=== PATIENT | female | born 1950 | race Caucasian/White ===

== ENCOUNTER 2018-08-18 18:14 | Emergency (ER) | payer OTHER ==
[~2018-08-18] VITALS: Ht 154.9 cm; Wt 52.2 kg
[2018-08-18] MEDS ORDERED: NORCO 5-325 TA1 EACH PO (20:29)
[2018-08-18 20:39] VITALS: BP 146/81
== END 2018-08-18 20:39 | disposition home or self-care (01) ==
LOC: ER 18:14
DX: S32.511A Fracture of superior rim of right pubis, initial encounter for closed fracture (principal); S32.591A Other specified fracture of right pubis, initial encounter for closed fracture; W19.XXXA Unspecified fall, initial encounter; Y93.01 Activity, walking, marching and hiking; Y92.89 Other specified places as the place of occurrence of the external cause; Y99.8 Other external cause status

== ENCOUNTER → 2018-12-12 | Outpatient (CLI) | payer OTHER ==
[~2018-12-12] MED LIST: NORCO 5-325 TA1 EACH PO
== END ==
LOC: MRI 10:09
DX: G93.89 Other specified disorders of brain (principal); R90.82 White matter disease, unspecified; H70.891 Other mastoiditis and related conditions, right ear; R41.3 Other amnesia; R26.9 Unspecified abnormalities of gait and mobility; H02.409 Unspecified ptosis of unspecified eyelid

== ENCOUNTER → 2019-01-22 | Outpatient (CLI) | payer OTHER | LOC: MRI 09:23 | DX: M51.24 Other intervertebral disc displacement, thoracic region (principal); G31.9 Degenerative disease of nervous system, unspecified; M40.294 Other kyphosis, thoracic region; M43.8X4 Other specified deforming dorsopathies, thoracic region; I63.9 Cerebral infarction, unspecified; G45.9 Transient cerebral ischemic attack, unspecified ==

== ENCOUNTER → 2019-02-04 | Outpatient (CLI) | payer OTHER ==
[2019-02-04 10:36] LABS: ALBUMIN 3.7 g/dL (3.4-5.0); CALCIUM 9.3 mg/dL (8.5-10.1); CREATININE 0.9 mg/dL (0.6-1.0); TOTAL BILIRUBIN 0.6 mg/dL (<0.1-1.0); TOTAL PROTEIN 6.6 g/dL (6.4-8.2)
[2019-02-04 10:46] LABS: POTASSIUM 4.7 mmol/L (3.5-5.1)
== END ==
LOC: CAT 09:43
PROVIDERS: Psychiatry & Neurology Neuromuscular Medicine
DX: R90.89 Other abnormal findings on diagnostic imaging of central nervous system (principal); I25.2 Old myocardial infarction

== ENCOUNTER → 2019-04-25 | Outpatient (CLI) | payer OTHER | LOC: NUC 09:43 | DX: M81.0 Age-related osteoporosis without current pathological fracture (principal); E04.2 Nontoxic multinodular goiter; E28.39 Other primary ovarian failure ==

== ENCOUNTER 2019-07-20 14:09 | Inpatient (IN) | payer OTHER ==
[~2019-07-20] VITALS: Ht 154.9 cm; Wt 54.2 kg
[2019-07-20 14:10] VITALS: BP 121/63
[2019-07-20 14:42] LABS: ABSOLUTE NEUTROPHILS 6.8 thou/uL (1.4-8.2); BASOPHILS 0.5 % (0.0-2.0); EOSINOPHILS 0.3 % (0.0-3.0); HEMATOCRIT 40.1 % (37.0-47.0); LYMPHOCYTES 14.1 % (24.0-44.0); MCH 30.9 pg (26.0-34.0); MCHC 32.5 g/dL (28.0-37.0); MCV 95.2 fL (80.0-100.0); PLATELET COUNT 274 thou/uL (150-400); POLYS 77.1 % (36.0-66.0); RBC 4.21 mil/uL (4.20-5.00); RDW 13.4 % (10.5-14.5); WBC 8.8 thou/uL (4.0-11.0)
[2019-07-20 14:49] LABS: CALCIUM 9.1 mg/dL (8.5-10.1)
[2019-07-20] MEDS ORDERED: SPIRONOLACTONE25 MG PO (14:50)
[2019-07-20] MEDS ORDERED: XYZAL5 MG PO (14:50)
[2019-07-20] MEDS ORDERED: LATANOPROST 0.2.5 ML OPHTHALMIC (14:50)
[2019-07-20] MEDS ORDERED: OMEPRAZOLE40 MG PO (14:51)
[2019-07-20] MEDS ORDERED: SERTRALINE HCL50 MG PO (14:51)
[2019-07-20] MEDS ORDERED: ALENDRONATE SOD70 MG PO (14:51)
[2019-07-20] MEDS ORDERED: ONE-DAILY MULT1 EACH PO (14:52)
[2019-07-20] MEDS ORDERED: IRBESARTAN150 MG PO (14:52)
[2019-07-20] MEDS ORDERED: FAMOTIDINE 10 M10 MG PO (14:53)
[2019-07-20] MEDS ORDERED: [UNRECOGNIZED DRUG - OTHER] PO (14:53)
[2019-07-20] MEDS ORDERED: PROBIOTIC & AC1 EACH PO (14:53)
[2019-07-20] MEDS ORDERED: NORCO 5-325 TA1 EAC1 PO (14:54)
[2019-07-20] MEDS ORDERED: B-COMPLEX WITH1 EACH PO (14:54)
[2019-07-20 15:48] VITALS: BP 141/63
[2019-07-20 16:48] VITALS: BP 141/63
[2019-07-20 17:13] VITALS: BP 143/67
--- NOTE | 2019-07-20 20:20 | NUR ---
Pt received from ER at 1700, transferred to room safely. On room air. Vital signs taken and charted. With at bedside. Admission education, history and assessment done; forms signed. On regular diet for dinner then NPO post midnight- pt informed and aware. A+Ox4, forgetful. Tolerated regular diet for dinner; no nausea, no vomiting and no abdominal pain noted. With physician's order for bedrest- staff informed, explained to patient as well. With SL at L FA- IVF of NS started as ordered, infusing at 75cc/hr. Checked fracture site- skin intact, no bruises or scratches noted. Pt's belongings documented accordingly. With consult for Dr Melo- called in from ER as per report. Scheduled for OR tomorrow at 8am, no orders for procedure yet- saw on procedure line up tomorrow- pt informed. Assisted in ADLs. With SCDs on. Falls bundle in place- pt high risk. To continue monitoring patient.
[2019-07-20 20:38] VITALS: BP 111/66
[2019-07-21 03:55] VITALS: BP 127/67
[2019-07-21 04:53] LABS: MCH 31.3 pg (26.0-34.0); MCHC 33.2 g/dL (28.0-37.0); MCV 94.3 fL (80.0-100.0); RBC 3.29 mil/uL (4.20-5.00); RDW 13.3 % (10.5-14.5); WBC 11.6 thou/uL (4.0-11.0)
[2019-07-21 04:54] LABS: HEMOGLOBIN 10.3 gm/dL (12.0-15.0)
--- NOTE | 2019-07-21 04:54 | NUR ---
ASSUMED CARE OF PT AT APPROX 1930.ASSESSMENT COMPLETED.PT DENIED PAIN SO FAR.REPOSITIONED PT WHILE IN BED.NEW ORDER NOTED TO PUT BO CATH IN.PT CONT ON IVF ORDERED.PT NPO SINCE TN FOR A SURGERY TODAY.FALL PRECAUTIONS IN PLACE,CALL LIGHT WITHIN REACH.
[2019-07-21 05:09] LABS: CREATININE 0.7 mg/dL (0.6-1.0); POTASSIUM 4.3 mmol/L (3.5-5.1)
[2019-07-21 08:14] VITALS: BP 129/72
[2019-07-21 10:41] VITALS: BP 129/67
[2019-07-21 11:02] LABS: HEMATOCRIT 29.8 % (37.0-47.0); HEMOGLOBIN 9.7 gm/dL (12.0-15.0); MCH 31.1 pg (26.0-34.0); MCHC 32.7 g/dL (28.0-37.0); MCV 95.2 fL (80.0-100.0); RBC 3.13 mil/uL (4.20-5.00); RDW 13.3 % (10.5-14.5); WBC 15.5 thou/uL (4.0-11.0)
[2019-07-21 17:18] VITALS: BP 89/51
--- NOTE | 2019-07-21 19:56 | NUR ---
PT CARE ASSUMED AT 0700. A&Ox3. AT BED SITE. PT WENT TO SURGERY AT 0800 AND RETURNED AT 1030. SURGERY WENT WELL WITH STABLE VITALS ON ROOM AIR. PT HAS SEEN THE PT TODAY AND MOVED HER TO THE RECLINER. SHE SAT IN THE RECLINER ALMOST ALL DAY. PT DOES OT COMPLAIN OF ANY PAIN. POST OP ANTIBIOTIC RECEIVED. IV PATENT WITH NO REDNESS OR EDEMA. BO IN PLACE ORDER TO REMOVE IN THE AM. CECIL DRESSING INTACT WITH ICE PACK IN PLACE. PT IS IMPULSIVE AND MOVES AROUND WITHOUT UTILIZING HIP PRECOUTIONS.
[2019-07-21 20:05] VITALS: BP 125/100
--- NOTE | 2019-07-21 20:06 | NUR ---
PT CARE ASSUMED AT 0700. PT IS ORIENTED TO SELF ONLY. PT CONTINUES TO BE LETHARGIC AND SLEEPING ALL DAY. HE WAS ABLE TO MOVE TO THE RECLINER AND STAY IN IT FOR 2 HOURS BUT ALSO SLEPT MOST OF THE DAY. PT IV INFILTRATED AND WAS REMOVED. IRON INFUSED AND LEFT A DARK JOHN WHICH LOOKS LIKE A BRUISE BUT IS NOT. PT IS NOT A CANDITATE FOR A MIDLINE OR PICC LINE DUE TO THE PARTIAL THROMBOSIS THAT WAS FOUND TODAY IN THE L. AXILLA AND L. PROXIMAL (ONE) BROCH. PT IS ON ROOM AIR. VITALS STABLE. THIGH HIGH [facility]OSES ARE ON DURING THE DAY AND OFF DURING THE NIGHT. PT IS PENDING REHAB ON 5N PENDING MENTAL LETHARGIC STATE. L. ARM IS TO BE ELEVATED. XARELTO WAS DISCONTINUES AND SWITCHED TO LOVENOX SUBQ. BED IS IN LOW POSITION, LOCKED, BED ALARM IN PLACE. CALL LIGHT IN REACH.
[2019-07-22 04:11] VITALS: BP 92/54
[2019-07-22 05:25] LABS: HEMATOCRIT 21.3 % (37.0-47.0); MCH 31.7 pg (26.0-34.0); MCHC 33.6 g/dL (28.0-37.0); MCV 94.2 fL (80.0-100.0); RBC 2.26 mil/uL (4.20-5.00); RDW 12.9 % (10.5-14.5); WBC 9.7 thou/uL (4.0-11.0)
[2019-07-22 05:30] LABS: HEMOGLOBIN 7.1 gm/dL (12.0-15.0)
--- NOTE | 2019-07-22 06:01 | NUR ---
ASSESSED AT START OF SHIFT PT A&OX3 AND FORGETFUL. IV INTACT FLUIDS AND ABX INFUISING. DRESING INTACT WITH NO DRAINGE. PT DENIES PAIN FOR THIS NURSE. SCD'S INTACT IN BOTH EXT. CAME BY TO VISIT AND LEFT FOR THE NIGHT. FOLLEY INTACT. FALL PREC IN PLACE AND WILL CONT WITH POC TILL EOS. NIGHT TIME SANDWICH GIVEN AND PT NAKIA IT WELL. SLEPT IN AND OUT MOST THROUGH THE NIGHT.
[2019-07-22 08:07] VITALS: BP 95/52
--- NOTE | 2019-07-22 15:58 | NUR ---
PT ADMITTED RELATED TO L HIP FX S/P IM NAIL CM REVIEWED CHART AND SPOKE WITH CARE TEAM. CM MET WITH PT AND SPOUSE AT BEDSIDE THIS DAY. PT IS A&O X4. CM ROLE INTRODUCED. PT AND SPOUSE INDICATED THAT THEY LIVE IN A RANCH STYLE HOUSE WITH 2 STEPS TO ENTER AND ALL NEEDS ON 1 LEVEL. THEY INDICATED THAT PT HAD A FWW, 4WW, AND NUMEROUS CANES FOR USE AT HOME. PT'S SPOUSE INDICATED THAT THEY THOUGHT THAT CARE CARE HAD MENTIONED POST ACUTE CARE STAY UPON DC. CM TO PROVIDE THEM WITH A LIST OF SNF FACILITIES FOR REVIEW. CM WENT TO LEAVE LIST SPOUSE INSN'T HERE PT SLEEPING. CM TO FOLLOW INDICATED WITH DC PLANNING.
--- NOTE | 2019-07-22 16:07 | HC ---
[facility] [place] [address] CONSULTATION Name: MANUEL LIND Room #: 446-P [facility] IN M.R.#: [id number] Admission: 07/20/19 Attend Phys: Glen Harmon MD Discharge: Date of : 52 Report #: [id number] THIS REPORT FOR: cc: Jose M Rowell MD, Neal A. MD Abraham, Scott M. MD ~ THIS REPORT FOR: //name// CC: Glen Rowell DATE OF SERVICE: 07/21/2019 REASON FOR CONSULTATION: Left hip fracture. HISTORY OF PRESENT ILLNESS: The patient is a 68-year-old female who fell at home. 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 Inside the home, she walks unassisted, but she fell landing on her left side, was brought to the Emergency Room, found to have a left intertrochanteric hip fracture. PAST MEDICAL HISTORY: Significant for imbalance and seizures, hypertension, GERD, AVM rupture, hemorrhagic stroke, appendectomy, cholecystectomy. SOCIAL HISTORY: She lives at home with her . Does not smoke, drink or use illicit drugs. MEDICATIONS: Have been reviewed and are on the chart. PHYSICAL EXAMINATION: GENERAL: This is a frail-appearing female, in no acute distress. She is alert and oriented, pleasant, cooperative in exam. EXTREMITIES: Examination of the left lower extremity shows to have her leg lying in an externally rotated and abducted position. She is neurologically intact distally with full sensation to light touch and brisk capillary refill. X-RAY EXAMINATION: AP pelvis and AP, lateral left hip show to have a left comminuted intertrochanteric hip fracture. In addition, she has healing pubic rami fractures on the right and left that appeared to be chronic. ASSESSMENT: Left intertrochanteric hip fracture. PLAN: Diagnosis, treatment options were discussed with the patient and her . I am recommending treatment with IM nail. Risks, benefits, alternatives, complications were discussed. They are understanding and wished to proceed. [address] [address] CONSULTATION Name: MANUEL LIND Room #: 446-P [facility] IN .R.#: [id number] Admission: 07/20/19 Attend Phys: Glen Harmon MD Discharge: Date of : 52 Report #: [id number] Thank you for allowing us to participate in the care of the patient. <ELECTRONICALLY SIGNED> By: Jamil Melo MD 07/22/19 1607 [id number] Jamil Melo MD /nt
--- NOTE | 2019-07-22 16:07 | O ---
[facility] [place] [address] OPERATIVE REPORT Name: MANUEL LIND Room #: 446-P [facility] IN M.R.#: [id number] Admission: 07/20/19 Attend Phys: Glen Harmon MD Discharge: Date of : 52 Report #: [id number] THIS REPORT FOR: cc: Jose M Rowell MD, Neal A. MD Abraham, Scott M. MD ~ THIS REPORT FOR: //name// CC: Glen Rowell DATE OF SERVICE: 07/21/2019 PREOPERATIVE DIAGNOSIS: Left comminuted intertrochanteric hip fracture. POSTOPERATIVE DIAGNOSIS: Left comminuted intertrochanteric hip fracture. PROCEDURE: Treatment of left intertrochanteric hip fracture with IM nail. SURGEON: Jamil Melo MD. SUPERVISOR DOCK: Kiara Jorge PA-C. INDICATIONS FOR SUPERVISOR DOCK: Throughout the case, extensive retraction and manipulation of the hip was required. This was afforded to me by my travel assistant. ANESTHESIA: LMA. IMPLANTS: [employer] size 10 short InterTan nail with a size 100/95 lag screw and compression screw and a size 27.5 distal locking screw. ESTIMATED BLOOD LOSS: 150 mL. COMPLICATIONS: None. SPECIMENS: None. CONDITION UPON LEAVING THE OPERATING ROOM: Stable. INDICATIONS FOR PROCEDURE: The patient is a 68-year-old female who fell at home and sustained a left comminuted intertrochanteric hip fracture. After discussion with her and her , they elected for treatment with IM nail. DESCRIPTION OF PROCEDURE: Risks, benefits, alternatives, complications were discussed in detail with the patient and the patient's including but not limited to risk of anesthesia, risk of damage to nerves, arteries, blood [address] [address] OPERATIVE REPORT Name: MANUEL LIND Room #: 446-P [facility] IN .R.#: [id number] Admission: 07/20/19 Attend Phys: Glen Harmon MD Discharge: Date of : 52 Report #: [id number] vessels, risk for infection, bleeding, risk for malunion, nonunion, need for reoperation. Informed consent was obtained from the patient. Left hip was appropriately marked in the preoperative holding area. IV Ancef was given for preoperative antibiotics. She was brought to the operating room and placed in supine position on operating room table. LMA anesthesia was induced without complication. She was transferred to the [place] table. Left lower extremity was placed in traction. Right lower extremity was scissored. Fluoroscopic imaging was brought in to verify adequate fracture reduction and that adequate images could be obtained as was the case. The left hip was then prepped and draped in normal sterile fashion. Timeout was performed properly identifying the patient and procedure as well as the instrumentation and implants. All in the operating room were in agreement. A 2-inch incision proximal to the tip of the greater trochanter was made with 10 blade through the skin and fascia in line with the femur. A threaded tip guidewire was placed on the tip of the greater trochanter and taken down to the level of the lesser trochanter and verified to be acceptable. A starting portal position under AP and lateral imaging. Entry portal reamer was then used to ream the entry portal and a size 10 short InterTan nail was placed down across the fracture site and seated. The guide for the lag screw was then placed on the lateral femur and a threaded tip guidewire was taken up into the femoral head. This was verified to be in center-center position under AP and lateral imaging. The derotation sled was placed for the compression screw and the path for the lag screw was drilled. A size 100 lag screw was then placed into the femoral head and seated decompression with a size 95 compression screw was then placed in 5-7 mm of compression was gained across the fracture site. This was then locked distally with 27.5 distal locking screw in the dynamic slot. After this, the outrigger was removed. The final AP and lateral images were taken to verify adequate fracture reduction and placement of hardware as was the case. The wounds were thoroughly irrigated with normal saline and closed with 2-0 Vicryl, skin staple. Soft dressing was applied. The patient tolerated this procedure well and went to recovery room under care of anesthesia postoperatively. <ELECTRONICALLY SIGNED> By: Jamil Melo MD 07/22/19 1607 [id number] Jamil Melo MD /nt
[2019-07-22 19:27] VITALS: BP 106/57
--- NOTE | 2019-07-23 03:13 | NUR ---
ASSESSED AT START OF SHIFT PT A&OX3 AND FORGETFUL. NEW IV 22G INSERTED IN LFT FA AND FLUIDS INFUISING. SCD'S IN PLACE AND DRESSING INTACT. FALL PREC IN PLACE. FOLLEY INTACT TO BE D/C IN THE MORNING. PAIN MED GIVENX1 THIS SHIFT. WILL CONT WITH POC TILL EOS.
[2019-07-23 04:21] VITALS: BP 121/58
[2019-07-23 06:32] LABS: WBC 6.4 thou/uL (4.0-11.0)
[2019-07-23 06:35] LABS: MCHC 33.9 g/dL (28.0-37.0); MCV 94.5 fL (80.0-100.0); RBC 1.98 mil/uL (4.20-5.00); RDW 13.2 % (10.5-14.5)
[2019-07-23 06:45] LABS: HEMATOCRIT 18.7 % (37.0-47.0); HEMOGLOBIN 6.3 gm/dL (12.0-15.0)
[2019-07-23 08:12] VITALS: BP 99/49
[2019-07-23 10:45] VITALS: BP 91/41
[2019-07-23 11:58] VITALS: BP 101/52; BP 104/52; BP 88/46
--- NOTE | 2019-07-23 14:28 | NUR ---
PATIENT HAD A GOOD DAY. WOKE UP WITH NO PAIN, MILDLY CONFUSED AND DISORIENTED. ONLY ORIENTED TO SELF. SHE AMBULATED TO CHAIR AND ABLE TO AMBULATE TO BEDSIDE COMMODE WITH ASSISTANCE. PT HAS CONSISTANT LOW BLOOD PRESSURE SO ANTIHYPERTENSIVES WERE HELD. PT HAD A PAIN RATE OF 7, PAIN MEDS WERE HELD DUE TO BP. HER HEMOGLOBIN WAS 6.3, 1 UNIT OF BLOOD WAS GIVEN. SHE IS EXPEREIENCING URINARY RETENTION, BLADDER SCAN WAS DONE AND FOUND 140 ML OF URINE. HER HAS BEEN PRESENT MOST OF THE MORNING AND ALL AFTERNOON. IS AT BEDSIDE, BUT NOT USED. HYDROCODONE WAS THEN GIVEN FOR A PAIN RATE OF 9 AT 1406 BECAUSE BP WAS RETURNING TO NORMAL.
--- NOTE | 2019-07-23 14:55 | NUR ---
I have reviewed and concur with student documentation.
[2019-07-23 16:09] LABS: HEMATOCRIT 23.8 % (37.0-47.0)
--- NOTE | 2019-07-23 16:39 | NUR ---
SPOUSE ASKED THAT REFERRALS BE SENT TO [facility] AND [facility] FOR REVIEW. CM TO FOLLOW INDICATED WITH DC PLANNING.
[2019-07-23 19:32] VITALS: BP 132/76
--- NOTE | 2019-07-23 19:51 | NUR ---
Assumed care of pt at 0700. Pt forgetful and confused at times but pleasant and easily redirectable. Hg in am labs 6.3. 1 unit of blood infused. Hg up to 8.0. Tolerated well. IVF infusing. Blood pressure low in the am but increased with blood transfusion. Pt will need placement. Pt will transfer to senior suites. Family at bedside. Fall precautions in place.
[2019-07-23 20:26] VITALS: BP 135/73
--- NOTE | 2019-07-24 03:56 | NUR ---
Pt transferred from @1999 via WC accompanied by spouse&staff. A/OX2-3,confused but able to make needs known at times. AX2 with transfers. C/o left hip pain,medicated per EMAR with relief reported. Pt incontinent of bladder but requests for bedpan at times. Dressing C/D/I left hip,icepack applied prn. IVF infusing via LFA w/o problems. Fall precautions in place,frequent checks done on pt. Resting comfortably w/o distress noted,will continue to monitor pt.
[2019-07-24 07:13] VITALS: BP 126/70
[2019-07-24] MEDS ORDERED: ASPIR 8181 MG PO (08:27)
--- NOTE | 2019-07-24 09:15 | NUR ---
FAXED REFERRAL TO [facility] SPOKE WITH VITOR IN ADM THEY RECEIVED REFERRAL AND CAN ACCEPT. FAXED REFERRAL TO [facility] RECEIVED CONFIRMATION AND LEFT MSG WITH KERRI IN ADM. DP TO FOLLOW.
--- NOTE | 2019-07-24 09:44 | NUR ---
DISCHARGE PLANNING. POST ACUTE RECOMMENDED. PATIENT REFERRAL FAXED TO [facility] YESTERDAY. CALL PLACED TO BOTH FACILITY ADMISSIONS COORDINATORS. BOTH STATE THEY ARE ABLE TO ACCEPT PATIENT CLINICALLY. UNIT SW NOTIFIED AND TO REACH OUT TO PATIENT AND FOR FACILITY CHOICE. ONCE FACILITY HAS BEEN DETERMINED INSURANCE AUTH WILL BE INITIATED AT THAT TIME. AWAITING RESPONSE. FOLLOWING.
--- NOTE | 2019-07-24 09:58 | NUR ---
SW reviewed chart and spoke with nursing and attending physician. Pt was transferred to [facility] from and is medically stable for discharge to SNF. [facility] and [facility] are both able to accept pt from a clinical standpoint. PINO met with pt and spouse at bedside to provide update and notify of acceptance. Preference is [facility]. SW explained need for insurance authorization. Both verbalized understanding. party planner faxed updates and finalized discharge orders/summary to [facility]. PINO updated attending physician. SW is following to finalize discharge plan.
[2019-07-24 14:58] VITALS: BP 92/52
--- NOTE | 2019-07-24 18:55 | NUR ---
PATIENT OREINTED TO SELF, LOCATION AND YEAR WITH AT BEDSIDE THROUGHOUT THE DAY. WHEN ASKED QUESTIONS SHE DOES NOT KNOW SHE LOOKS AT HER . PATIENT APPROVED TO DISCHARGE TO SNF.
[2019-07-24 19:20] VITALS: BP 113/65
[2019-07-24 23:42] VITALS: BP 113/65
--- NOTE | 2019-07-25 04:39 | NUR ---
Assumed pt care at 1900. Pt A/OX2,pleasantly confused and needs reminders to call for help before attempting to get OOB.C/o pain to left hip 09/26,medicated per EMAR with relief reported. Moderate assist of 1 with ADLs/transfers. Prune juice given at HS as pt doesn't recall last time she had a BM;no results at this time. Incontinent of bladder. Dressing to left hip C/D/I. IVF infusing on LFA w/o problems. Fall precautions in place,will continue to monitor pt.
[2019-07-25 09:36] LABS: HEMATOCRIT 24.4 % (37.0-47.0); HEMOGLOBIN 8.1 gm/dL (12.0-15.0); MCH 30.5 pg (26.0-34.0); MCHC 33.2 g/dL (28.0-37.0); MCV 92.1 fL (80.0-100.0); RBC 2.65 mil/uL (4.20-5.00); RDW 15.3 % (10.5-14.5); WBC 6.8 thou/uL (4.0-11.0)
[2019-07-25 09:42] LABS: CALCIUM 7.5 mg/dL (8.5-10.1); CREATININE 0.5 mg/dL (0.6-1.0); POTASSIUM 3.8 mmol/L (3.5-5.1)
--- NOTE | 2019-07-25 10:05 | NUR ---
PINO reviewed chart and spoke with nursing. Pt is medically stable for discharge to [facility]. Awaiting insurance authorization at this time. PINO met with pt and spouse at bedside to provide update. PINO requested therapy see pt early today, in order to send notes to [facility]. PINO is following to assist as needed with discharge planning.
--- NOTE | 2019-07-25 21:27 | NUR ---
PATIENT OREINTED TO SELF, LOCATION WITH CONFUSION. AT BEDSIDE MOST OF THE DAY TO SUPPORT SPOUSE. DISCHARED WITH CHART COPY IN STABLE CONDITION WITH ALL PERSONAL BELONGINGS TO [facility].
--- NOTE | 2019-07-31 12:34 | EKG ---
[facility] [place] [address] ELECTROCARDIOGRAM REPORT Name: MANUEL LIND Room #: 403-P [facility] IN M.R.#: [id number] Admission: 07/20/19 Attend Phys: Glen Harmon MD Discharge: 07/25/19 Date of : 52 Report #: [id number] THIS REPORT FOR: cc: Jose M Rowell MD, Neal A. MD Lammoglia, Francisco J. MD ~ THIS REPORT FOR: //name// [facility] ED Test Date: 2019-07-20 Test Time: 15:34:51 Pat Name: MANUEL LIND Department: Room: 446 Gender: F [place]. Senator: tracy : 1950 Requested By: Mayo Oquendo Order Number: [id number] MD: Eduar Levy Measurements Intervals [place] Rate: 82 P: 34 WI: 150 QRS: 1 QRSD: 87 T: 45 QT: 372 QTc: 435 Interpretive Statements Sinus rhythm left atrial enlargement Early transition NS ST/T wave abnormalities No previous ECG available for comparison Electronically Signed On 07-20-2019 15:59:26 COST CONSULTANT by Eduar Levy [email or web address] <ELECTRONICALLY SIGNED> By: Eduar Levy MD 07/20/19 1559 1534 1534 Eduar Levy MD /EPI
== END 2019-07-25 16:30 | DRG 480 ==
LOC: ER 14:09 → 4S 15:52 → 4N 07-23 20:00
PROVIDERS: Emergency Medicine; Family Medicine; Orthopaedic Surgery; ADMIT Hospitalist
PROC: 0QS706Z Reposition Left Upper Femur with Intramedullary Internal Fixation Device, Open Approach (ICD-10-PCS; principal; 2019-07-21)
PROC: 30233N1 Transfusion of Nonautologous Red Blood Cells into Peripheral Vein, Percutaneous Approach (ICD-10-PCS; 2019-07-23)
DX: S72.142A Displaced intertrochanteric fracture of left femur, initial encounter for closed fracture (principal); E43 Unspecified severe protein-calorie malnutrition; I10 Essential (primary) hypertension; D64.9 Anemia, unspecified; K21.9 Gastro-esophageal reflux disease without esophagitis; Z90.49 Acquired absence of other specified parts of digestive tract; Z86.73 Personal history of transient ischemic attack (TIA), and cerebral infarction without residual deficits; Z79.82 Long term (current) use of aspirin; Z79.899 Other long term (current) drug therapy; Z82.49 Family history of ischemic heart disease and other diseases of the circulatory system; W18.39XA Other fall on same level, initial encounter; Y93.89 Activity, other specified; Y92.098 Other place in other non-institutional residence as the place of occurrence of the external cause; Y99.8 Other external cause status
CPT/HCPCS: 10102; 10790; 50101; 50386; 51412; 51538; 55445; 56524; 57092; 62110; 62900; 70005

== ENCOUNTER → 2020-06-25 | Outpatient (CLI) | payer OTHER ==
[~2020-06-25] MED LIST changes: +ALENDRONATE SOD70 MG PO; +ASPIR 8181 MG PO; +B-COMPLEX WITH1 EACH PO; +FAMOTIDINE 10 M10 MG PO; +IRBESARTAN150 MG PO; +LATANOPROST 0.2.5 ML OPHTHALMIC; +NORCO 5-325 TA1 EAC1 PO; +OMEPRAZOLE40 MG PO; +ONE-DAILY MULT1 EACH PO; +PROBIOTIC & AC1 EACH PO; +SERTRALINE HCL50 MG PO; +SPIRONOLACTONE25 MG PO; +XYZAL5 MG PO; +[UNRECOGNIZED DRUG - OTHER] PO
== END ==
LOC: LAB 14:43
PROVIDERS: ATTEND Nurse Practitioner
DX: Z20.828 Contact with and (suspected) exposure to other viral communicable diseases (principal)